=== PATIENT | female | born 1955 | race Caucasian/White ===

== ENCOUNTER 2017-12-31 16:53 | Inpatient (IN) | payer OTHER ==
[~2017-12-31] VITALS: Ht 172.7 cm; Wt 93.3 kg
--- NOTE | ~2017-12-31 | EKG ---
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 TAPIA : 1955 Requested By: Elton Avitia Order Number: [id number] MD: Ivan Oconnor Measurements Intervals [place] Rate: 61 P: 28 AR: 158 QRS: -10 QRSD: 85 T: 33 QT: 421 QTc: 424 Interpretive Statements Sinus rhythm Atrial premature complex Inferior infarct, age indeterminate No previous ECG available for comparison Electronically Signed On 01-01-2018 15:50:50 CDT by Ivan Oconnor [email or web address] <ELECTRONICALLY SIGNED> By: Ivan Oconnor MD, [facility] 01/01/18 1550 D: 05/1311 11 Ivan Oconnor MD, [facility] /EPI
--- NOTE | ~2017-12-31 | CATHLAB ---
[facility] [address] ([address] [place] [address] INVASIVE PROCEDURE REPORT Name: AUGUSTO PETERSON Room #: 204-P [facility] IN [facility]#: [id number] Admission: 12/31/17 Attend Phys: Elton Frias Discharge: 01/02/18 Date of : 57 Date of Service: 01/04/18 1651 Report #: [id number] THIS REPORT FOR: //name// ADDENDUM APPROVED REPORT Study performed: 12/31/2017 16:54:46 Patient Details Patient Status: In-Patient Room #: The patient is a 62 year-old female Event Personnel Elton Avitia Pole Tester, Autumn Ma Monitor, Tara Mahoney RTR, CARLOS Gill, Alan Fields RN RN, Miguel Sousa RN, Kaylah Wayne RN RN, Sheeba Flowers RTR Monitor Procedures Performed Art Access - R femoral artery* 81279 Initial Mod Sed Same Phys/QHP Gr5y 255436 79623 Mod Sed Same Phys/QHP Ea 256596 Left Heart Cath w/or w/o Coronaries 4313382 [facility] RUPERTO Revasc AMI Total/Sub Single RCA C9606 AMIREVSING Hemostasis with Manual pressure supervision of conscious sedation Indication STEMI (>0 to less than or equal to 6 hours) Procedure Narrative The patient was brought emergently to the Cardiac Catheterization Laboratory and was prepped and draped in a sterile manner. The Right Groin^ was infiltrated with 1% Lidocaine subcutaneous anesthesia. A PINNACLE 6FR Sheath #[id number] sheath was inserted into the RFA^. Coronary angiography was performed using coronary diagnostic catheters. The right coronary system was accessed and visualized with a LAUNCHER 6FR JR 4 #[id number] catheter. The left coronary system was accessed and visualized with a JL 4 catheter. The left ventricle was accessed and visualized with a Pigtail catheter. Left ventricular/Aortic Valve gradient assessed via catheter pullback. Hemostasis was obtained with manual pressure following sheath removal without any complications. The patient tolerated the procedure well and there were no complications associated with the procedure. There was no hematoma. Intraoperative Conscious Sedation Sedation start time: 17:06 Case end Time: [facility] [employer] [address] INVASIVE PROCEDURE REPORT Name: AUGUSTO PETERSON Marie Room #: 204-P [facility]#: [id number] Admission: 12/31/17 Attend Phys: Elton Frias Discharge: 01/02/18 Date of : 57 Date of Service: 01/04/18 1651 Report #: [id number] 17:50 Versed 1 mg Fluoro Time: 11.45 minutes Dose: DAP 29933.90 cGycm2 2208 mGy Contrast Type and Amount: Omnipaque 150 ml Coronary Angiography The patient's coronary anatomy is right dominant. Diagnostic Cath Left Main Main is of normal origin small-caliber has a distal 60% eccentric lesion. It bifurcates the left anterior descending and left circumflex coronary artery LAD Moderate caliber type II vessel which courses in the anterior interventricular sulcus with luminal irregularities present here it is tortuous in its course but no high-grade lesions are noted. Diagonal 1 Small to moderate caliber vessel without significant high-grade lesion present Circumflex Small-caliber vessel has a proximal 50-60% lesion at its origin and then reconstitutes and terminates as a lateral wall trifurcating marginal free of high-grade lesions Right Coronary Moderate caliber vessel normal origin and has a proximal 30-40% lesion beta continues on whether is a subtotal occlusion of 99% with thrombus present in the proximal third. Then continues on giving rise to a small caliber RV marginal branch posteriorly eating posteriorly giving rise to posterior descending artery and posterolateral branches which are free of high-grade disease. The distal posterior descending artery is visualized via left to right collaterals on injections of the left coronary R PDA Small-caliber vessel with mild proximal tapering noted of less than 50% without significant high-grade disease beyond Left Ventriculography Left Ventriculography was not performed. IVUS Findings Sprinter OTW 3.5 x 15 #[id number] Hemodynamics The aortic pressure is 217/92 mmHg with a mean of 142 mmHg. The left ventricular pressure is 175/22 mmHg with a mean of mmHg. The left ventricular end diastolic pressure is 40 mmHg. PCI Technique [facility] [address] [place] [address] INVASIVE PROCEDURE REPORT Name: AUGUSTO PETERSON Marie Room #: 204-P DIS IN M.R.#: [id number] Admission: 12/31/17 Attend Phys: Elton Frias Discharge: 01/02/18 Date of : 57 Date of Service: 01/04/18 1651 Report #: [id number] After angiography was obtained determination of interventional was made. A standard guide was engaged with a coronary ostium and 014 wire was advanced to the distal right coronary vessel. Assessment of this a 3.0 mm x 12 [place] balloon was positioned across the lesion and inflated several times. A 3.5 x 18 stent was then attempted to be crossed but was unable to cross at that time. The stent was removed and a 2.5 mm balloon was then inflated without difficulty. The stent was brought back once again and positioned across the lesion and inflated to 12 howie. The vessel is only patent the previously stenotic site and no evidence of distal thrombus embolization was noted. The distal portion of the stent and the vessel had a rough edge with out dissection but with tubular flow. In view of this a 3.0 mm x 8 mm stent was positioned and dilated to 3 mm distally and tapered to 3.5 mm proximally. Visualization of the vessel now demonstrated a more smooth tapering in size. Final images were obtained wire catheter removed sheaths sewn in place Angiomax continued PCI Technique Lesion Percutaneous coronary intervention was performed on the proximal right coronary artery. A LAUNCHER 6FR JR 4 #[id number] Guide Catheter was used to engage the ostium. A Luge Wire (J) .014 X 182CM #[id number] Interventional Guidewire was used to cross the lesion. BALLOON DILATION A Balloon catheter Sprinter OTW 3.0 x 15 #[id number] was inserted and inflated up to 12.00atm for 16seconds. Additional Inflation: 14.00atm for 37seconds. STENT DEPLOYMENT A drug-eluting stent RESOLUTE OTW 3.5 X 18 #[id number] was inserted and inflated up to 8.00atm for 62seconds. Additional Inflation: 12.00atm for 14seconds. BALLOON DILATION A Balloon catheter Sprinter OTW 3.5 x 15 #[id number] was inserted and inflated up to 12.00atm for 36seconds. STENT DEPLOYMENT A drug-eluting stent RESOLUTE RX 3.0 X 9 #[id number] was inserted and inflated up to 10.00atm for 12seconds. Additional Inflation: 18.00atm for 11seconds. Conclusion 1. Coronary artery disease 2 vessel with critical maximal RCA lesion [facility] [address] [place] [address] INVASIVE PROCEDURE REPORT Name: AUGUSTO PETERSON Room #: 204-P [facility]#: [id number] Admission: 12/31/17 Attend Phys: Elton Frias Discharge: 01/02/18 Date of : 57 Date of Service: 01/04/181650 Report #: [id number] 2. Abnormal hemodynamics with elevated left ventricular end-diastolic pressures 3. Successful percutaneous revascularization and RUPERTO stent deployment to the proximal RCA involving a 3.0 x 8 mm stent dilated to 3.5 proximally and a 3.5 mm stent taken to 12 howie. Recommendations Cardiac Risk Reduction Program Medications Administered Ticagrelor <ELECTRONICALLY SIGNED> By: Elton Avitia MD 01/04/181650 50 50 Elton Avitia MD /INF
--- NOTE | ~2017-12-31 | 2DMMODE ---
[address] [address] 2 D/M-MODE ECHOCARDIOGRAM Name: AUGUSTO PETERSON Room #: 204-P ADM IN M.R.#: [id number] Admission: 12/31/17 Attend Phys: Elton Frias Discharge: Date of : 57 Date of Service: 01/01/18 1300 Report #: [id number] THIS REPORT FOR: //name// APPROVED REPORT Study performed: 01/01/2018 11:48:55 EXAM: Comprehensive 2D, Doppler, and color-flow Echocardiogram Patient Location: Bedside Room #: 204 Status: routine BSA: 2.09 HR: 71 bpm BP: 139/60 mmHg Other Information Study Quality: Adequate Indications S^P STEMI Left Ventricle The left ventricle is normal size. There is normal left ventricular wall thickness. The left ventricular systolic function is normal. The left ventricular ejection fraction is within the normal range. LVEF is 55-60%. Right Ventricle The right ventricle is normal size. The right ventricular systolic function is normal. Atria The left atrium size is normal. The right atrium size is normal. Aortic Valve The aortic valve is normal in structure. No aortic regurgitation is present. Mitral Valve The mitral valve is normal in structure. Trace to mild mitral regurgitation. Tricuspid Valve The tricuspid valve is normal in structure. [address] [place] [address] 2 D/M-MODE ECHOCARDIOGRAM Name: AUGUSTO PETERSON Room #: 204-P ADM IN M.R.#: [id number] Admission: 12/31/17 Attend Phys: Elton Frias Discharge: Date of : 57 Date of Service: 01/01/18 1300 Report #: [id number] Great Vessels The aortic root is normal in size. IVC is normal in size and collapses >50% with inspiration. Pericardium There is no pericardial effusion. <Conclusion> The left ventricle is normal size. LVEF is 55-60%. The aortic valve is normal in structure. The mitral valve is normal in structure. Trace to mild mitral regurgitation. There is no pericardial effusion. <ELECTRONICALLY SIGNED> By: Elton Avitia MD 01/01/18 1300 1300 1300 Elton Avitia MD /INF
[2017-12-31 19:27] VITALS: BP 146/64
[2017-12-31 23:16] VITALS: BP 126/68
[2018-01-01 02:26] LABS: ABSOLUTE NEUTROPHILS 7.4 thou/uL (1.4-8.2); EOSINOPHILS 2.5 % (0.0-3.0); HEMATOCRIT 41.3 % (37.0-47.0); HEMOGLOBIN 14.1 gm/dL (12.0-15.0); LYMPHOCYTES 18.3 % (24.0-44.0); MCH 30.5 pg (26.0-34.0); MCHC 34.1 g/dL (28.0-37.0); MCV 89.4 fL (80.0-100.0); MONOCYTES 7.6 % (1.0-8.0); PLATELET COUNT 222 thou/uL (150-400); POLYS 70.6 % (36.0-66.0); RBC 4.61 mil/uL (4.20-5.00); RDW 13.1 % (10.5-14.5); WBC 10.5 thou/uL (4.0-11.0)
[2018-01-01 03:24] LABS: ALBUMIN 3.6 g/dL (3.4-5.0); ANION GAP 7 mmol/L (7-16); BUN 11 mg/dL (7-18); CALCIUM 8.5 mg/dL (8.5-10.1); CHLORIDE 106 mmol/L (98-107); CHOLESTEROL 199 mg/dL (<200); CO2 27 mmol/L (21-32); CREATININE 0.7 mg/dL (0.6-1.0); GLUCOSE 91 mg/dL (74-106); HDL CHOLESTEROL 44 mg/dL (>40); LDL CHOLESTEROL 135 mg/dL (<100); POTASSIUM 4.2 mmol/L (3.5-5.1); SGOT 136 U/L (15-37); SGPT 64 U/L (30-65); SODIUM 140 mmol/L (136-145); TC:HDL 4.5 Ratio (Not establshd); TOTAL BILIRUBIN 0.5 mg/dL (<0.1-1.0); TOTAL PROTEIN 6.8 g/dL (6.4-8.2); TRIGLYCERIDE 101 mg/dL (<150); VLDL 20 mg/dL (<40)
[2018-01-01 03:28] LABS: SERUM ASSESSMENT Clear
[2018-01-01 04:14] VITALS: BP 144/65
[2018-01-01 07:34] VITALS: BP 135/54
[2018-01-01 11:27] VITALS: BP 139/60
[2018-01-01 13:15] VITALS: BP 109/59
[2018-01-01 15:20] VITALS: BP 151/72
[2018-01-01 19:17] VITALS: BP 127/59
[2018-01-02 04:22] VITALS: BP 145/71
[2018-01-02 08:06] VITALS: BP 151/64
[2018-01-02] MEDS ORDERED: BRILINTA90 MG PO (08:51)
[2018-01-02] MEDS ORDERED: LIPITOR40 MG PO (08:52)
[2018-01-02] MEDS ORDERED: LOPRESSOR25 PO (08:52)
[2018-01-02] MEDS ORDERED: IMDUR 60 MG TAB60 M1 PO (08:52)
[2018-01-02] MEDS ORDERED: ASPIR 8181 MG PO (08:53)
[2018-01-02] MEDS ORDERED: LISINOPRIL10 MG PO (08:53)
[2018-01-02 11:00] VITALS: BP 151/64
== END 2018-01-02 11:42 | disposition home or self-care (01) | DRG 246 ==
LOC: 2N 16:53
PROVIDERS: Internal Medicine
PROC: 027035Z Dilation of Coronary Artery, One Artery with Two Drug-eluting Intraluminal Devices, Percutaneous Approach (ICD-10-PCS; principal; 2017-12-31)
PROC: 4A023N7 Measurement of Cardiac Sampling and Pressure, Left Heart, Percutaneous Approach (ICD-10-PCS; principal; 2017-12-31)
PROC: B2151ZZ Fluoroscopy of Left Heart using Low Osmolar Contrast (ICD-10-PCS; principal; 2017-12-31)
PROC: B2111ZZ Fluoroscopy of Multiple Coronary Arteries using Low Osmolar Contrast (ICD-10-PCS; principal; 2017-12-31)
DX: I25.10 Atherosclerotic heart disease of native coronary artery without angina pectoris (principal); I21.19 ST elevation (STEMI) myocardial infarction involving other coronary artery of inferior wall; I10 Essential (primary) hypertension; E78.5 Hyperlipidemia, unspecified; Z79.899 Other long term (current) drug therapy
CPT/HCPCS: 10081

== ENCOUNTER 2018-02-22 20:45 | Inpatient (IN) | payer OTHER ==
[~2018-02-22] VITALS: Ht 172.7 cm; Wt 95.7 kg
--- NOTE | ~2018-02-22 | EKG ---
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: tk : 1955 Requested By: Ketty Oneil Order Number: [id number] MD: Ivan Oconnor Measurements Intervals [place] Rate: 53 P: 13 SD: 172 QRS: 1 QRSD: 92 T: 5 QT: 465 QTc: 437 Interpretive Statements Sinus rhythm Inferior infarct, old Compared to ECG 01/01/2018 13:12:31 No significant change was found Electronically Signed On 02-23-2018 7:38:32 CDT by Ivan Oconnor [email or web address] <ELECTRONICALLY SIGNED> By: Ivan Oconnor MD, [facility] 02/23/18 0738 011 011 Ivan Oconnor MD, [facility] /EPI
--- NOTE | ~2018-02-22 | H ---
[facility] [place] [address] [place] [address] HISTORY AND PHYSICAL Name: AUGUSTO PETERSON Room #: 206-P ADM IN M.R.#: [id number] Admission: 02/22/18 Attend Phys: Blade Hill MD Discharge: Date of : 57 Report #: [id number] THIS REPORT FOR: //name// CC: FAM unknown Casey Hill DATE OF SERVICE: 02/22/2018 ATTENDING PHYSICIAN: Dr. Carrasquillo. PRIMARY CARE PHYSICIAN: Dr. Jet Dubois in [place], [place]. CHIEF COMPLAINT: Chest tightness. HISTORY OF PRESENT ILLNESS: The patient is a 62-year-old female who was last seen here at [facility] in December of this year with an inferior ST elevation FL. She was taken to [facility] and had 2 stents placed in her RCA. She has been on Brilinta and aspirin at home since. She says she has been compliant while taking her medications. She had not been having any other episodes of chest pain since she arrived home until earlier today. She says she woke up this morning and shortly after waking up, while she was still at rest, she started feeling some tightness across her chest. She said it felt like her bra was too tight, she did have some associated shortness of breath with it, as well as some dizziness when she did get up to ambulate. She initially went into [place] [facility] and was evaluated and sent home. She said the chest tightness really never went away. It was not getting any worse during the day with any exertion. She ended up going back into the ER this afternoon because the pain stayed persistent. She said it did feel somewhat similar to her FL that she had in December as she stated this was more of a chest tightness than a pressure pain then as well. She did not have any nausea or vomiting today. She was sent here as a direct admission for further cardiac evaluation. She does report that she has had some right rotator cuff problems, but she feels that this is not related. PAST MEDICAL HISTORY: Hypertension, coronary artery disease, hyperlipidemia. PAST SURGICAL HISTORY: Coronary stents in 12/2017 as above, bilateral tubal ligation, carpal tunnel release. ALLERGIES: None. HOME MEDICATIONS: Include Brilinta 90 mg p.o. b.i.d., Lipitor 40 mg daily, Imdur 60 mg daily, metoprolol 25 mg p.o. b.i.d., lisinopril 10 mg at bedtime, aspirin 81 mg daily. SOCIAL HISTORY: The patient is an ex-smoker, having smoked up until December when [address] [place] [address] HISTORY AND PHYSICAL Name: AUGUSTO PETERSON Room #: 206-P [facility] IN M.R.#: [id number] Admission: 02/22/18 Attend Phys: Blade Hill MD Discharge: Date of : 57 Report #: [id number] she had her heart attack. She was smoking half pack of cigarettes per day for the last 20 years on and off. She denies any alcohol or drug use. She lives alone. Her last year. She ambulates independently. FAMILY HISTORY: Her mother of lung cancer. Her father of stomach cancer. Her dad did have a history of heart disease as well. REVIEW OF SYSTEMS: Twelve-point review of systems was reviewed with the patient, otherwise negative unless stated in the HPI. PHYSICAL EXAMINATION: GENERAL: The patient is an alert female in no acute distress. VITAL SIGNS: Temperature was 99.2, heart rate 54, respirations 16, blood pressure 140/72, oxygen 100% on room air. HEENT: PERRLA. Sclerae nonicteric. Oral mucosa is pink and moist. NECK: Supple, no JVD noted. CARDIAC: She is somewhat bradycardic, but no murmurs, rubs or gallops. RESPIRATORY: Breath sounds are clear bilaterally. No wheezing or rhonchi. She is diminished in the bases. Breathing is nonlabored. ABDOMEN: Obese, soft, nontender, nondistended with positive bowel sounds. VASCULAR: No edema noted. Pedal pulses are 2+. NEUROLOGIC: The patient is alert and oriented x 3. Speech is clear. She is answering questions appropriately and following commands. SKIN: Intact. No rashes or lesions. She is somewhat pale. LABORATORY DATA AND DIAGNOSTICS: The only blood work from [facility] available is troponin that was negative. She did have an EKG there, which showed sinus bradycardia, rate of 54. ASSESSMENT AND PLAN: 1. Chest tightness. The patient did have a recent inferior myocardial infarction and had 2 stents placed to the RCA. She states this pain is similar to her prior myocardial infarction. So far, her troponin levels have been negative and EKG is not showing any ischemic changes. We will consult Cardiology. Continue home meds of Brilinta and aspirin due to the recent stenting. We will repeat an EKG in the morning. Add nitro p.r.n. 2. Hypertension. Blood pressure is stable, continue home meds. If she persistently remains bradycardic, we may need to decrease dose of metoprolol. 3. Hyperlipidemia. Continue statin therapy. 4. Bradycardia. She is on metoprolol 25 mg p.o. b.i.d. She did receive a dose this evening. We will continue to monitor on telemetry and if she continues to be persistently bradycardic, we may need to decrease her dosing. 5. Deep venous thrombosis prophylaxis. Place sequential compression devices. 6. Code status: The patient wishes to be a full code. [facility] [address] [place] [address] HISTORY AND PHYSICAL Name: NICHOLASAUGUSTO Room #: 206-P ADM IN .R.#: [id number] Admission: 02/22/18 Attend Phys: Blade Hill MD Discharge: Date of : 57 Report #: [id number] We will continue to follow the patient closely throughout the hospitalization and make changes based on clinical status. <ELECTRONICALLY SIGNED> By: JU Singh 02/23/18 0755 0507 0537 JU Singh /nt
--- NOTE | ~2018-02-22 | EKG ---
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 MAHARAJ : 1955 Requested By: Ketty Oneil Order Number: [id number] MD: Ivan Oconnor Measurements Intervals [place] Rate: 54 P: -9 NE: 173 QRS: -5 QRSD: 95 T: 3 QT: 459 QTc: 435 Interpretive Statements Sinus rhythm Inferior infarct, old Compared to ECG 01/01/2018 13:12:31 Atrial premature complex(es) no longer present Electronically Signed On 02-23-2018 7:20:18 CDT by Ivan Oconnor [email or web address] <ELECTRONICALLY SIGNED> By: Ivan Oconnor MD, [facility] 02/23/18 0720 2215 2215 Ivan Oconnor MD, [facility] /EPI
[~2018-02-22 20:45] MED LIST: ASPIR 8181 MG PO; BRILINTA90 MG PO; IMDUR 60 MG TAB60 M1 PO; LIPITOR40 MG PO; LISINOPRIL10 MG PO; LOPRESSOR25 PO
[2018-02-23] VITALS (10 sets, daily range): BP systolic 116–152; BP diastolic 65–78
[2018-02-23 01:24] LABS: HEMATOCRIT 38.2 % (37.0-47.0); HEMOGLOBIN 13.6 gm/dL (12.0-15.0); MCH 31.1 pg (26.0-34.0); MCHC 35.8 g/dL (28.0-37.0); MCV 87.1 fL (80.0-100.0); RBC 4.38 mil/uL (4.20-5.00); RDW 13.5 % (10.5-14.5); WBC 12.7 thou/uL (4.0-11.0)
[2018-02-23 01:58] LABS: ANION GAP 8 mmol/L (7-16); BUN 17 mg/dL (7-18); CALCIUM 9.7 mg/dL (8.5-10.1); CHLORIDE 105 mmol/L (98-107); CO2 25 mmol/L (21-32); CREATININE 0.9 mg/dL (0.6-1.0); GLUCOSE 95 mg/dL (74-106); POTASSIUM 3.8 mmol/L (3.5-5.1); SODIUM 138 mmol/L (136-145); TROPONIN-I <0.06 ng/mL (<0.06)
[2018-02-23] MEDS ORDERED: PEPCID20 MG PO (10:18)
[2018-02-23] MEDS ORDERED: BENAZEPRIL HCL20 MG PO (10:18)
[2018-02-23] MEDS ORDERED: LISINOPRIL10 MG PO ×2 (10:20→12:12)
[2018-02-24 04:20] VITALS: BP 115/51
[2018-02-24 07:44] VITALS: BP 147/70
[2018-02-24] MEDS ORDERED: PROTONIX40 M1 PO (08:47)
[2018-02-24] MEDS ORDERED: TOPROL XL25 MG PO (08:47)
[2018-02-24 11:22] VITALS: BP 114/55
== END 2018-02-24 12:50 | disposition home or self-care (01) | DRG 392 ==
LOC: 2N 20:45
PROVIDERS: Nurse Practitioner Acute Care
DX: K21.9 Gastro-esophageal reflux disease without esophagitis (principal); I25.118 Atherosclerotic heart disease of native coronary artery with other forms of angina pectoris; Z68.32 Body mass index [BMI] 32.0-32.9, adult; I10 Essential (primary) hypertension; E78.5 Hyperlipidemia, unspecified; E66.9 Obesity, unspecified; R00.1 Bradycardia, unspecified; Z98.61 Coronary angioplasty status; Z79.899 Other long term (current) drug therapy; Z87.891 Personal history of nicotine dependence; Z82.49 Family history of ischemic heart disease and other diseases of the circulatory system; Z80.1 Family history of malignant neoplasm of trachea, bronchus and lung; Z80.0 Family history of malignant neoplasm of digestive organs; Z79.82 Long term (current) use of aspirin; I25.2 Old myocardial infarction
CPT/HCPCS: 10081

== ENCOUNTER 2018-03-11 19:26 | Inpatient (IN) | payer OTHER ==
[~2018-03-11] VITALS: Ht 172.7 cm; Wt 90.5 kg
--- NOTE | ~2018-03-11 | EKG ---
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 : 1955 Requested By: Ketty Oneil Order Number: [id number] MD: Ivan Oconnor Measurements Intervals [place] Rate: 55 P: 14 SC: 165 QRS: 23 QRSD: 94 T: 27 QT: 455 QTc: 436 Interpretive Statements Sinus bradycardia Otherwise no significant abnormality Compared to ECG 02/23/2018 01:13:33 Inferior Q waves are less prominent Electronically Signed On 03-12-2018 8:13:51 CDT by Ivan Oconnor [email or web address] <ELECTRONICALLY SIGNED> By: Ivan Oconnor MD, [facility] 03/12/18 0813 1 1 Ivan Oconnor MD, [facility] /EPI
--- NOTE | ~2018-03-11 | H ---
[facility] [place] [address] HISTORY AND PHYSICAL Name: AUGUSTO PETERSON Room #: 200-I [facility] IN ..#: [id number] Admission: 03/11/18 Attend Phys: Guzman Nash MD Discharge: 03/12/18 Date of : 57 Report #: [id number] THIS REPORT FOR: //name// CC: FAM unknown Blade Dowditzelmaria eugenia Guzman Nash DATE OF SERVICE: 03/11/2018 ATTENDING PHYSICIAN: Dr. Portillo. PRIMARY CARE PHYSICIAN: Dr. Jet Dubois in [place], [place]. CHIEF COMPLAINT: Chest pain. HISTORY OF PRESENT ILLNESS: The patient is a 62-year-old female with a history of recent inferior ST elevation [place] in December of this year. 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 She has been compliant while taking Brilinta and aspirin at home. She was readmitted back here in the beginning of February with chest pain. She was evaluated by GI as her symptoms seem to be related to GERD. Her cardiac workup was normal and it was decided that she would need to have an EGD in 3 more months when it was safe to stop Brilinta. Since she was discharged home, she has not had any further episodes of chest pain and she has been taking Protonix regularly. She states she was outside pulling weeds earlier today when she developed some substernal chest pain. She said it felt like a pressure and did radiate into the middle of her back. She had some associated shortness of air, but denies any nausea or vomiting. She said it did not feel like heartburn. She went inside and sat down and took 2 sublingual nitro and her pain seemed to get slightly better, but still never went away, so she drove herself to the ER at [place], where she was evaluated. Her initial cardiac workup was negative. Because of her cardiac history, it was decided that she should transfer to [facility] where her mental telepathist is. She currently rates her pain at 0. PAST MEDICAL HISTORY: Hypertension, coronary artery disease, hyperlipidemia. PAST SURGICAL HISTORY: Coronary stent to the RCA x 2, bilateral tubal ligation, carpal tunnel release. ALLERGIES: None. HOME MEDICATIONS: Brilinta 90 mg p.o. b.i.d., Lipitor 40 mg daily, Imdur 60 mg daily, metoprolol 25 mg daily, lisinopril 20 mg at bedtime, aspirin 81 mg daily, [place] 10/325 one tab q.6 hours p.r.n. and Protonix 40 mg daily. SOCIAL HISTORY: The patient is an ex-smoker, having smoked up until December of this [facility] [address] [address] HISTORY AND PHYSICAL Name: AUGUSTO PETERSON Room #: 200-I [facility] IN M.R.#: [id number] Admission: 03/11/18 Attend Phys: Guzman Nash MD Discharge: 03/12/18 Date of : 57 Report #: [id number] year when she had her heart attack. She was smoking half pack of cigarettes per day for about 20 years on and off. She denies any alcohol or drug use. She lives alone. Her last year and she ambulates independently. FAMILY HISTORY: Her mother of lung cancer. Her father of stomach cancer. Her did have a history of heart disease as well. REVIEW OF SYSTEMS: Twelve-point review of systems was reviewed with the patient and otherwise negative unless stated in the HPI. PHYSICAL EXAMINATION: GENERAL: The patient is an alert female, in no acute distress. VITAL SIGNS: Temperature is 36.6, heart rate 58, respirations 16, blood pressure 173/83, oxygen 100% on room air. HEENT: PERRLA. Sclerae are nonicteric. Oral mucosa is pink and moist. NECK: Supple, no JVD noted. CARDIOVASCULAR: Normal S1, S2. No murmurs, rubs or gallops. RESPIRATORY: Breath sounds are clear bilaterally. No wheezing or rhonchi. Breathing is nonlabored. ABDOMEN: Soft, nontender, nondistended with positive bowel sounds. VASCULAR: No peripheral edema noted. Pedal pulses are 2+. NEUROLOGIC: The patient is alert and oriented x 3. Speech is clear. She is moving all extremities equally. No focal neuro deficits noted. SKIN: Intact. No rashes or lesions. LABORATORY AND DIAGNOSTICS: Blood work done at [facility] showed a WBC of 7.9, hemoglobin 12, platelets 254. Sodium 144, potassium 3.5, BUN 13, creatinine 0.8 and glucose 107. LFTs are within normal limits. Troponin is negative. BNP is negative at 291. EKG showed normal sinus rhythm, no ST elevation. ASSESSMENT AND PLAN: 1. Recurrent chest pain. The patient was transferred here for further cardiac evaluation. We will consult Dr. Eckert. Her initial cardiac workup at [facility] was unremarkable. We will check 2 more troponin levels and repeat an EKG in the morning. Continue home medications including Brilinta and aspirin daily. She is already on Imdur, which we will continue. Add nitro sublingual p.r.n. It was previously felt that her recurrent chest pain was related to gastroesophageal reflux disease. We will continue Protonix b.i.d. and continue to plan to have an EGD done after Brilinta can be stopped safely. 2. Hypertension. Blood pressure is stable, continue home medications. 3. Hyperlipidemia. Continue statin therapy. 4. Code status. The patient is a full code. 5. Deep venous thrombosis prophylaxis, place sequential compression devices. [facility] [address] [place] [address] HISTORY AND PHYSICAL Name: NICHOLASAUGUSTO L Room #: 200-I [facility] IN ..#: [id number] Admission: 03/11/18 Attend Phys: Guzman Nash MD Discharge: 03/12/18 Date of : 57 Report #: [id number] We will continue to follow the patient closely throughout the hospitalization and make changes based on clinical status. <ELECTRONICALLY SIGNED> By: JU Singh 03/12/18 [id number] JU Singh /nt
[~2018-03-11 19:26] MED LIST changes: +BENAZEPRIL HCL20 MG PO; +PEPCID20 MG PO; +PROTONIX40 M1 PO; +TOPROL XL25 MG PO
[2018-03-11 21:32] VITALS: BP 173/83
[2018-03-11] MEDS ORDERED: NORCO 10-325 T1 EACH PO (21:36)
[2018-03-11 23:38] VITALS: BP 156/76
[2018-03-12 03:42] VITALS: BP 147/75
[2018-03-12 07:16] VITALS: BP 156/69
[2018-03-12 11:53] VITALS: BP 122/57
[2018-03-12] MEDS ORDERED: RANEXA500 MG PO (14:30)
[2018-03-12 14:37] VITALS: BP 122/57
[2018-03-12 14:39] VITALS: BP 122/57
== END 2018-03-12 15:29 | disposition home or self-care (01) | DRG 303 ==
LOC: 2N 19:26 → ENTRNSPT 03-12 14:59 → EDTRNSPTSTS 03-12 15:04 → 2N 03-12 15:29
DX: I25.119 Atherosclerotic heart disease of native coronary artery with unspecified angina pectoris (principal); I10 Essential (primary) hypertension; E78.5 Hyperlipidemia, unspecified; R00.1 Bradycardia, unspecified; Z95.5 Presence of coronary angioplasty implant and graft; Z87.891 Personal history of nicotine dependence; Z80.1 Family history of malignant neoplasm of trachea, bronchus and lung; Z80.0 Family history of malignant neoplasm of digestive organs; Z82.49 Family history of ischemic heart disease and other diseases of the circulatory system; Z79.82 Long term (current) use of aspirin; Z79.899 Other long term (current) drug therapy
CPT/HCPCS: 10081